=== PATIENT | male | born 1955 | race American Indian/Alaskan Native ===

== ENCOUNTER 2016-12-04 07:22 | Emergency (ER) | payer OTHER, MEDICARE ==
[~2016-12-04] VITALS: Ht 172.7 cm; Wt 99.8 kg
[~2016-12-04 07:22] MED LIST: AMLODIPINE BESY10 MG PO; AQUAPHOR HEALIN50 GM TP; ARAVA20 MG PO; ASPIR 8181 MG PO; ASPIR-TRIN325 MG PO; COREG12.5 MG PO; CORICIDIN HBP1 EAC5 PO; CORICIDIN HBP1 EACH PO; DURAGESIC1 EACH TRANSDERM; EFFIENT10 MG PO; FLEXERIL PO; HYDRALAZINE 2525 MG PO; HYDROCHLOROTHIA25 M2 PO; ICY HOT CREAM35.4 GM TP; LANACANE FIRST99 GM TP; LIPITOR40 MG PO; LISINOPRIL20 MG PO; MS CONTIN15 MG PO; NEURONTIN 300M300 M2 PO; NEURONTIN 400400 M1 PO; NORCO 5-325 TA1 EACH PO; PENICILLIN VK500 M1 PO; PERCOCET 10-321 EACH PO; PLAVIX 75 MG TA75 M1 PO; PREDNISONE 5 MG5 M1 PO; PROTONIX40 M1 PO; ROXICODONE30 MG PO; VITAMIN D250000 UNIT PO; [UNRECOGNIZED DRUG - CODE] PO; [UNRECOGNIZED DRUG - OTHER] PO
[2016-12-04] MEDS ORDERED: PERCOCET 5-3251 EACH PO (07:37)
== END 2016-12-04 07:54 | disposition home or self-care (01) ==
LOC: ER 07:22
DX: G89.29 Other chronic pain (principal); M06.9 Rheumatoid arthritis, unspecified; Z95.5 Presence of coronary angioplasty implant and graft; I10 Essential (primary) hypertension; E78.5 Hyperlipidemia, unspecified; Z88.8 Allergy status to other drugs, medicaments and biological substances

== ENCOUNTER 2017-02-23 20:38 | Emergency (ER) | payer OTHER, MEDICARE ==
[~2017-02-23] VITALS: Ht 170.2 cm; Wt 97.5 kg
[~2017-02-23 20:38] MED LIST changes: +PERCOCET 5-3251 EACH PO
[2017-02-23 21:30] LABS: ABSOLUTE NEUTROPHILS 4.7 thou/uL (1.4-8.2); BASOPHILS 0.7 % (0.0-2.0); EOSINOPHILS 5.3 % (0.0-3.0); HEMATOCRIT 34.7 % (42.0-52.0); HEMOGLOBIN 11.9 gm/dL (14.0-18.0); LYMPHOCYTES 24.9 % (24.0-44.0); MCH 32.2 pg (26.0-34.0); MCHC 34.3 g/dL (28.0-37.0); MCV 93.8 fL (80.0-100.0); MONOCYTES 10.5 % (1.0-8.0); PLATELET COUNT 195 thou/uL (150-400); POLYS 58.6 % (36.0-66.0); RDW 13.8 % (10.5-14.5)
[2017-02-23 21:31] LABS: MANUAL DIFF NO
[2017-02-23 21:36] LABS: CALCIUM 8.9 mg/dL (8.5-10.1); CREATININE 1.3 mg/dL (0.7-1.3); POTASSIUM 3.7 mmol/L (3.5-5.1)
[2017-02-23] MEDS ORDERED: CLEOCIN HCL150 MG PO (22:13)
[2017-02-23] MEDS ORDERED: HYDROCODONE-AP1 EAC6 PO (22:13)
[2017-02-23] MEDS ORDERED: MOBIC7.5 MG PO (22:13)
== END 2017-02-23 22:29 | disposition home or self-care (01) ==
LOC: ER 20:38
PROVIDERS: Nurse Practitioner Family
DX: M70.31 Other bursitis of elbow, right elbow (principal); I89.0 Lymphedema, not elsewhere classified; I10 Essential (primary) hypertension; M19.90 Unspecified osteoarthritis, unspecified site; Z88.8 Allergy status to other drugs, medicaments and biological substances; Y93.89 Activity, other specified